=== PATIENT | female | born 1985 | race Caucasian/White ===

== ENCOUNTER 2018-04-16 00:17 | Emergency (ER) | payer OTHER ==
[~2018-04-16] VITALS: Ht 165.1 cm; Wt 59.0 kg
[~2018-04-16 00:17] MED LIST: ALPR1 PO; BENZ2 PO; BUPR150ER PO; CARI350; FAMO40 PO; HALO2 PO; HYDACE5 PO; IBUHYD; IBUP800 PO; Mirena1 EACH VG; Naprosyn500 MG PO; Norco 5-325 Ta1 EACH PO; ONDA4ODT; OXYACE10 PO; PROM25 PO; Percocet 5-3251 EACH PO; TRAZ50 PO; VENL25 PO; Verotin-Gr Cap1 EACH PO
== END 2018-04-16 02:23 | disposition home or self-care (01) ==
LOC: ER 00:17
DX: R07.89 Other chest pain (principal); Z88.0 Allergy status to penicillin; Z88.2 Allergy status to sulfonamides; Z88.8 Allergy status to other drugs, medicaments and biological substances; Z79.899 Other long term (current) drug therapy; F17.200 Nicotine dependence, unspecified, uncomplicated
CPT/HCPCS: 71046; 93005; 93010; 96374; 99283; J1885

== ENCOUNTER 2019-08-24 09:02 | Observation (INO) | payer OTHER ==
[~2019-08-24] VITALS: Ht 162.6 cm; Wt 77.1 kg
[~2019-08-24 09:02] MED LIST changes: +Flagyl500 MG PO; +ONDA4ODT MM; +Prednisone20 MG PO; +Vibramycin100 MG PO
[2019-08-24 09:39] LABS: BASOPHILS ABSOLUTE AUTO 0.06 K/mm3 (0.00-0.23); BASOPHILS PERCENT AUTO 0 % (0-2); EOSINOPHILS PERCENT AUTO 0 % (0-6); Hematocrit 34.1 % (33.0-51.0); Hemoglobin 11.6 g/dL (11.5-16.0); IMMATURE GRAN ABSOLUTE AUTO 0.15 K/mm3 (0.00-0.10); IMMATURE GRAN PERCENT AUTO 1 % (0-1); LYMPHOCYTES ABSOLUTE AUTO 0.73 K/mm3 (0.84-5.20); LYMPHOCYTES PERCENT AUTO 4 % (21-46); MONOCYTES ABSOLUTE AUTO 0.81 K/mm3 (0.16-1.47); MONOCYTES PERCENT AUTO 4 % (4-13); Mean Corpuscular HGB 31.8 pg (26.0-34.0); Mean Corpuscular Volume 93 fL (80-100); Mean Platelet Volume 9.5 fL (9.1-12.4); NEUTROPHILS ABSOLUTE AUTO 17.67 K/mm3 (1.96-9.15); NEUTROPHILS PERCENT AUTO 91 % (41-73); Platelet Count 356 K/mm3 (150-400); RDW Coefficient Variation 13.4 % (11.7-14.2); RDW Standard Deviation 46.1 fL (35.1-46.3); Red Blood Cell Count 3.65 M/mm3 (3.80-5.20); White Blood Cell Count 19.42 K/mm3 (4.00-11.30)
[2019-08-24 09:58] LABS: Alanine Aminotransfer (ALT/SGP 42 U/L (12-78); Albumin, Blood 3.7 g/dL (3.4-5.0); Albumin/Globulin Ratio 1.1 (0.8-1.8); Alk Phos 41 U/L (50-136); Anion Gap 10 mmol/L (6-16); Aspartate Aminotrans (AST/SGOT 39 U/L (12-37); Bilirubin, Total 0.4 mg/dL (0.1-1.0); Blood Urea Nitrogen 19 mg/dL (8-24); Bun/Creatinine Ratio 13.7 (12.0-20.0); CO2, Blood 21 mmol/L (21-32); Calcium, Blood 8.4 mg/dL (8.5-10.1); Chloride, Blood 113 mmol/L (98-108); Creatinine, Blood 1.39 mg/dL (0.40-1.00); Ethanol (Alcohol), Blood, Med <3 mg/dL; Globulin, Blood 3.3 g/dL (2.2-4.0); Glomerular Filtration Rate 47 (60-); Glucose, Blood 75 mg/dL (70-99); Potassium, Blood 3.6 mmol/L (3.5-5.5); Sodium, Blood 144 mmol/L (136-145)
[2019-08-24 10:31] LABS: Source, Urine Clean Catch
[2019-08-24 10:35] LABS: Bilirubin, Urine Neg (Neg); Blood, Urine 4+ (Neg); Glucose Qualitative, Urine Neg (Neg); Ketones, Urine 3+ (Neg); Leukocyte Esterase, Urine 2+ (Neg); Nitrite, Urine Neg (Neg); Protein, Urine 2+ (Neg); Specific Gravity, Urine 1.025 (1.003-1.022); Urobilinogen, Urine NORM (Normal)
[2019-08-24 10:48] LABS: U Amphetamine Screen DETECTED; U Barbituate Screen Not Detected; U Benzodiazapine Screen Not Detected; U Cocaine Screen Not Detected; U Methamphetamine Screen DETECTED
[2019-08-24 10:49] LABS: U Buprenorphine Screen Not Detected; U Cannabinoids Screen DETECTED; U Methadone Screen Not Detected; U Opiates Screen Not Detected; U Oxycodone Screen Not Detected; U Phencyclidine Screen Not Detected; U Propoxyphene Screen Not Detected
[2019-08-24 10:50] LABS: Appearance, Urine Hazy (Clear); Bacteria Few /hpf; Color, Urine Yellow (P-Yellow); Squamous Epithelial Cells Few /hpf (Few)
[2019-08-24 11:52] LABS: Candida species (DNA Probe) Negative (NEGATIVE); G. vaginalis (DNA Probe) Negative (NEGATIVE); T. vaginalis (DNA Probe) Positive (NEGATIVE)
--- NOTE | 2019-08-24 14:56 | NUR ---
ADMISSION: REPORT RECIEVED FROM ED RN ANDREA, PT TO UNIT AT 1430. PT IS ALERT, OREINTED, BUT VERY HYPERACTIVE, NOT SITTING STILL AND GETTING OUT OF BED TO LOOK OUT WINDOW AND UNDER BED. NON SKID SOCKS PLACED ON PT AND INSTUCTED TO STAY IN BED, WHICH PT IGNORED. PT REPORTS "SOMETHING IN THE CORNER OF THE ROOM", THERE IS NOTHING. PT SMELLS OF STRONGLY OF MARIJUANA. HR IS 105, OTHERWISE VSS. WILL CTM
--- NOTE | 2019-08-24 15:07 | NUR ---
CALL RECIEVED FROM ASSISTANT CREDIT MANAGER. PLAN IS TO KEEP PT NPO AT THIS TIME AND HAVE D & C TOMORROW. DR. FELIZ TO SEE PT, WILL MONITOR
[2019-08-24 17:47] LABS: BASOPHILS ABSOLUTE AUTO 0.06 K/mm3 (0.00-0.23); BASOPHILS PERCENT AUTO 0 % (0-2); EOSINOPHILS ABSOLUTE AUTO 0.03 K/mm3 (0.00-0.68); EOSINOPHILS PERCENT AUTO 0 % (0-6); Hematocrit 30.6 % (33.0-51.0); Hemoglobin 10.2 g/dL (11.5-16.0); IMMATURE GRAN ABSOLUTE AUTO 0.06 K/mm3 (0.00-0.10); IMMATURE GRAN PERCENT AUTO 0 % (0-1); LYMPHOCYTES ABSOLUTE AUTO 2.36 K/mm3 (0.84-5.20); LYMPHOCYTES PERCENT AUTO 17 % (21-46); MONOCYTES ABSOLUTE AUTO 1.41 K/mm3 (0.16-1.47); MONOCYTES PERCENT AUTO 10 % (4-13); Mean Corpuscular HGB 31.2 pg (26.0-34.0); Mean Corpuscular HGB Conc 33.3 g/dL (31.5-36.5); Mean Corpuscular Volume 94 fL (80-100); Mean Platelet Volume 9.7 fL (9.1-12.4); NEUTROPHILS ABSOLUTE AUTO 9.99 K/mm3 (1.96-9.15); NEUTROPHILS PERCENT AUTO 72 % (41-73); Platelet Count 303 K/mm3 (150-400); RDW Coefficient Variation 13.8 % (11.7-14.2); RDW Standard Deviation 46.7 fL (35.1-46.3); Red Blood Cell Count 3.27 M/mm3 (3.80-5.20); White Blood Cell Count 13.91 K/mm3 (4.00-11.30)
--- NOTE | 2019-08-24 17:57 | NUR ---
SUMMARY: NO ACUTE CHANGE SINCE ADMISSION. VSS, CURRENTLY SLEEPING. CONTINUES TO HAVE HYPERACTIVE ACTIVITY MOVING ABOUT ROOM, LOOKING UNDER BED, WONDERING OUT IN HALLWAY WHILE AWAKE. PT HAVING AUDITORY AND VISUAL HALLUCINATIONS. DR. RODRIGUEZ IN TO SEE PT, SEE NEW ORDERS. FLUIDS STARTED AND PT GIVEN ANTIBIOTIC. PLAN IS NPO AT 0000 AND AT D&C TOMORROW. WILL CTM AND REPORT TO FERNANDA RN
[2019-08-24 18:08] LABS: Anion Gap 5 mmol/L (6-16); Blood Urea Nitrogen 14 mg/dL (8-24); Bun/Creatinine Ratio 14.5 (12.0-20.0); CO2, Blood 21 mmol/L (21-32); Calcium, Blood 7.5 mg/dL (8.5-10.1); Chloride, Blood 112 mmol/L (98-108); Creatinine, Blood 0.97 mg/dL (0.40-1.00); Glomerular Filtration Rate >60 (60-); Glucose, Blood 132 mg/dL (70-99); Potassium, Blood 3.3 mmol/L (3.5-5.5); Sodium, Blood 138 mmol/L (136-145)
--- NOTE | 2019-08-25 05:22 | NUR ---
WOKE PT UP FOR VS, PT'S VSS, AMBULATED TO BR, UNSTEADY GAIT. PT BEGAN SHOWING SIGNS OF HALLUCANATING ALONG WITH PARANOIA. PT STATED FEELING UNSAFE AND NEEDED A KNIFE OR WEAPON TO DEFEND HERSELF. PUPILS DIALTED. DEMANDING ME TO REMOVE GARBAGE FROM ROOM AND BACKPACK CAUSE SOMTHING WAS COMING OUT OF IT. PT THEN STOOD ON BED. PT WAS GIVEN 1MG ATIVAN THEN REPEATED DOSE WHICH SEEMED INEFECTIVE. PT ADMITTED TO TAKING ACID AND METH PRIOR TO COMING TO HOSPITAL. CALLED DR. RODRIGUEZ AND INFORMED OF PT'S BEHAVIOR. PT WAS THEN MEDICATED WITH ANOTHER 2MG IV ATIVAN AND 50MG IV BENADRYL. THIS HAS HELPED SOME. PT IS NOT FRANTIC AND IS A BIT TEARFUL. TALKING ABOUT HER CHILDREN AND HOW SHE MAKES POOR CHOICES. SPECIAL [employer] UNIT OFFICER IS NOW SITTING WITH PT TO HELP COMFORT HER AND MAKE HER FEEL SAFE, THIS IS HELPING.
[2019-08-25 06:20] LABS: Anion Gap 6 mmol/L (6-16); BASOPHILS ABSOLUTE AUTO 0.04 K/mm3 (0.00-0.23); BASOPHILS PERCENT AUTO 1 % (0-2); Blood Urea Nitrogen 13 mg/dL (8-24); Bun/Creatinine Ratio 14.3 (12.0-20.0); CO2, Blood 23 mmol/L (21-32); Calcium, Blood 7.6 mg/dL (8.5-10.1); Chloride, Blood 113 mmol/L (98-108); Creatinine, Blood 0.91 mg/dL (0.40-1.00); EOSINOPHILS ABSOLUTE AUTO 0.14 K/mm3 (0.00-0.68); EOSINOPHILS PERCENT AUTO 2 % (0-6); Glomerular Filtration Rate >60 (60-); Glucose, Blood 94 mg/dL (70-99); Hematocrit 32.7 % (33.0-51.0); Hemoglobin 10.5 g/dL (11.5-16.0); IMMATURE GRAN ABSOLUTE AUTO 0.03 K/mm3 (0.00-0.10); IMMATURE GRAN PERCENT AUTO 0 % (0-1); LYMPHOCYTES ABSOLUTE AUTO 2.16 K/mm3 (0.84-5.20); LYMPHOCYTES PERCENT AUTO 27 % (21-46); MONOCYTES PERCENT AUTO 11 % (4-13); Mean Corpuscular HGB 30.3 pg (26.0-34.0); Mean Corpuscular HGB Conc 32.1 g/dL (31.5-36.5); Mean Corpuscular Volume 95 fL (80-100); Mean Platelet Volume 10.1 fL (9.1-12.4); NEUTROPHILS PERCENT AUTO 59 % (41-73); Platelet Count 333 K/mm3 (150-400); Potassium, Blood 3.4 mmol/L (3.5-5.5); RDW Standard Deviation 48.4 fL (35.1-46.3); Red Blood Cell Count 3.46 M/mm3 (3.80-5.20); Sodium, Blood 142 mmol/L (136-145); White Blood Cell Count 8.07 K/mm3 (4.00-11.30)
--- NOTE | 2019-08-25 10:25 | NUR ---
PT TO OR AT 1020
--- NOTE | 2019-08-25 10:38 | NUR ---
Ambulatory in Day SurgeryLungs clear T/O to Auscultation. Patient confirms NPO status and agrees with scheduled surgery. History, Chart, Medications and Allergies reviewed before start of procedure.
--- NOTE | 2019-08-25 11:18 | NUR ---
08/25/19 1118 Suze Sanchez PT RECEIVED ANTIBIOTICS IN PREOP
--- NOTE | 2019-08-25 11:53 | NUR ---
REPORT RECIEVED FROM TEXT TRANSCRIBER TAMI
--- NOTE | 2019-08-25 12:23 | NUR ---
POST OP: PT BACK FROM OR AT ABOUT 1200. UPON ASSESSMENT, PT IS DROWSY, AWAKENS TO VOICE AND ABLE TO ANSWER QUESTIONS. VSS. SCANT BLEEDING ON BEAR PAD AND, CHANGED AT THIS TIME. PT DIFTS BACK TO SLEEP EASILY, BED ALARM ON FOR SAFETY. WILL CTM.
--- NOTE | 2019-08-25 17:54 | NUR ---
SUMMARY: PT DOING WELL POST OP. VSS. ALERT, AND ABLE TO REST IN BED INSTEAD OF MOVING ABOUT THE ROOM. CONTINUES TO HAVE TREMORS, NO VISUAL OR AUDITORY HALLUCINATIONS OBSERVED. PT REPORTS SOME "SORENESS" AT ABD, REPORTS PAIN MANAGED WITH TORADOL. SMALL AMOUNT VAGINAL BLEED, BEAR PAD CHANGED X1. PT ABLE TO EAT, NO NAUSEA AND IS VOIDING. SPOKE WITH DR. LUIS FERNANDO RODRIGUEZ AND HOPEFUL TO DISCHARGE PT IF PT CAN FIND A PLACE TO STAY TONIGHT. WILL CTM AND REPORT TO NOC RN.
[2019-08-25] MEDS ORDERED: ACET325 PO (19:33)
[2019-08-25] MEDS ORDERED: IBUP800 PO (19:34)
--- NOTE | 2019-08-25 19:45 | NUR ---
DISCHARGE PACKET PRINTED, SHAHEED BALDERAS TO DO PT EDUCATION AND DISCHARGE. [facility] TO BIOMEDICAL EQUIPMENT TECHNICIAN PT TO TAKE TO [facility]
--- NOTE | 2019-08-25 20:38 | NUR ---
DISCHARGE SUMMARY: PT DISCHARGED TO HOME, VSS, NO DISTRESS NOTED AT TIME OF D/C. D/C INSTRUCTIONS AND F/U CARE REVIEWED W/PT. ALL QUESTIONS ANSWERED. D/C INSTRUCTIONS AND SCRIPT SENT W/PT. PT REP PAIN TALISHA AT TIME OF D/C. PT PLAN TO STAY AT FRIEND'S HOUSE IN DAYS [place], OR. [facility] CALLED ([facility] PER [facility]UR[facility]) TO TRANSPORT PT. PT AMB VIA CART BY SURVEY TECHNICIAN. SURVEY TECHNICIAN STAYED W/PT UNTIL [facility] ARRIVED.
== END 2019-08-25 19:50 | disposition home or self-care (01) ==
LOC: ER 09:02 → ERHOLD 09:03 → SURS 09:03 → ER 13:22 → SURS 13:22 → ERHOLD 13:22 → SURS 14:32
PROVIDERS: Emergency Medicine; ADMIT Obstetrics & Gynecology
PROC: 10D17ZZ Extraction of Products of Conception, Retained, Via Natural or Artificial Opening (ICD-10-PCS; principal; 2019-08-25 10:45)
DX: O03.4 Incomplete spontaneous abortion without complication (principal); F15.10 Other stimulant abuse, uncomplicated; F31.9 Bipolar disorder, unspecified; F41.9 Anxiety disorder, unspecified; Z23 Encounter for immunization; Z88.5 Allergy status to narcotic agent; Z88.8 Allergy status to other drugs, medicaments and biological substances; Z88.0 Allergy status to penicillin; Z88.2 Allergy status to sulfonamides; Z79.899 Other long term (current) drug therapy
CPT/HCPCS: 36415; 76830; 76856; 80048; 80053; 81001; 83605; 84702; 84703; 85025; 86850; 86900; 86901; 87040; 87086; 87480; 87510; 87660; 88305; 90686; 93005; 93010; 96361; 96365; 96375; 96376; 99285-25; G0378; G0480; J0694; J0696; J1200; J1885; J2060; J2250; J2704; J3010; J7030; J7120

== ENCOUNTER 2019-09-13 10:16 | Emergency (ER) | payer OTHER ==
[~2019-09-13] VITALS: Ht 167.6 cm; Wt 77.1 kg
[~2019-09-13 10:16] MED LIST changes: +ACET325 PO
== END 2019-09-13 22:54 | disposition home or self-care (01) ==
LOC: ER 10:16
DX: F41.9 Anxiety disorder, unspecified (principal); Z88.8 Allergy status to other drugs, medicaments and biological substances; Z88.0 Allergy status to penicillin; Z88.2 Allergy status to sulfonamides; Z88.5 Allergy status to narcotic agent
CPT/HCPCS: 99284

== ENCOUNTER → 2019-11-26 | Outpatient (CLI) | payer OTHER | END | disposition home or self-care (01) | LOC: LAB EV 08:52 → LAB SHORT 08:52 | DX: R50.9 Fever, unspecified (principal) | CPT/HCPCS: 87081 ==

== ENCOUNTER 2020-03-06 17:36 | Emergency (ER) | payer OTHER ==
[~2020-03-06] VITALS: Ht 162.6 cm; Wt 81.7 kg
[2020-03-06] MEDS ORDERED: FLUT1DIS5 INH (18:27)
[2020-03-06] MEDS ORDERED: ALBU90OI INH ×2 (18:27→20:05)
[2020-03-06 18:30] LABS: BASOPHILS ABSOLUTE AUTO 0.06 K/mm3 (0.00-0.23); BASOPHILS PERCENT AUTO 1 % (0-2); EOSINOPHILS ABSOLUTE AUTO 0.18 K/mm3 (0.00-0.68); EOSINOPHILS PERCENT AUTO 2 % (0-6); Hematocrit 38.8 % (33.0-51.0); Hemoglobin 13.2 g/dL (11.5-16.0); IMMATURE GRAN ABSOLUTE AUTO 0.08 K/mm3 (0.00-0.10); IMMATURE GRAN PERCENT AUTO 1 % (0-1); LYMPHOCYTES ABSOLUTE AUTO 4.24 K/mm3 (0.84-5.20); LYMPHOCYTES PERCENT AUTO 41 % (21-46); MONOCYTES ABSOLUTE AUTO 1.22 K/mm3 (0.16-1.47); MONOCYTES PERCENT AUTO 12 % (4-13); Mean Corpuscular HGB 30.8 pg (26.0-34.0); Mean Corpuscular Volume 91 fL (80-100); Mean Platelet Volume 9.8 fL (9.1-12.4); NEUTROPHILS ABSOLUTE AUTO 4.48 K/mm3 (1.96-9.15); NEUTROPHILS PERCENT AUTO 44 % (41-73); Platelet Count 382 K/mm3 (150-400); RDW Coefficient Variation 13.8 % (11.7-14.2); Red Blood Cell Count 4.28 M/mm3 (3.80-5.20); White Blood Cell Count 10.26 K/mm3 (4.00-11.30)
[2020-03-06 19:05] LABS: Alanine Aminotransfer (ALT/SGP 47 U/L (12-78); Albumin/Globulin Ratio 1.2 (0.8-1.8); Alk Phos 38 U/L (50-136); Anion Gap 3 mmol/L (6-16); Aspartate Aminotrans (AST/SGOT 46 U/L (12-37); Bilirubin, Total 0.3 mg/dL (0.1-1.0); Blood Urea Nitrogen 18 mg/dL (8-24); Bun/Creatinine Ratio 16.4 (12.0-20.0); CO2, Blood 28 mmol/L (21-32); Calcium, Blood 8.3 mg/dL (8.5-10.1); Chloride, Blood 107 mmol/L (98-108); Globulin, Blood 3.4 g/dL (2.2-4.0); Glomerular Filtration Rate >60 (60-); Glucose, Blood 80 mg/dL (70-99); Potassium, Blood 3.8 mmol/L (3.5-5.5); Sodium, Blood 138 mmol/L (136-145); Total Protein, Blood 7.4 g/dL (6.4-8.2)
[2020-03-06 19:22] LABS: Beta HCG, Quantitative, Serum <1 mIU/mL (0-3); Troponin I <0.015 ng/mL (0.000-0.040)
== END 2020-03-06 20:31 | disposition home or self-care (01) ==
LOC: ER 17:36
PROVIDERS: Emergency Medicine
DX: J45.909 Unspecified asthma, uncomplicated (principal); F41.9 Anxiety disorder, unspecified; F31.9 Bipolar disorder, unspecified; Z88.8 Allergy status to other drugs, medicaments and biological substances; Z88.0 Allergy status to penicillin; Z88.2 Allergy status to sulfonamides; Z88.5 Allergy status to narcotic agent; Z79.899 Other long term (current) drug therapy; Z79.51 Long term (current) use of inhaled steroids
CPT/HCPCS: 36415; 71046; 80053; 84484; 84702; 85025; 93005; 93010; 94640; 99285-25

== ENCOUNTER → 2020-08-05 | Outpatient (CLI) | payer OTHER ==
[~2020-08-05] MED LIST changes: +ALBU90OI INH; +FLUT1DIS5 INH
== END ==
LOC: LAB SHORT 15:06 → LAB EV 15:06
DX: J06.9 Acute upper respiratory infection, unspecified (principal); Z20.828 Contact with and (suspected) exposure to other viral communicable diseases
CPT/HCPCS: U0003

== ENCOUNTER → 2020-08-19 | Outpatient (CLI) | payer OTHER | END | disposition home or self-care (01) | LOC: LAB EV 11:50 → LAB SHORT 11:50 | DX: B34.9 Viral infection, unspecified (principal); Z20.828 Contact with and (suspected) exposure to other viral communicable diseases | CPT/HCPCS: 87081; U0003 ==

== ENCOUNTER → 2021-06-15 | Outpatient (CLI) | payer OTHER ==
[2021-06-15 19:34] LABS: White Blood Cells, Urine 0-2 /hpf (0-5)
[2021-06-15 19:35] LABS: Bacteria Few /hpf; Red Blood Cells, Urine 0-2 /hpf (0-2); Squamous Epithelial Cells Rare /hpf (Few)
[2021-06-15 20:06] LABS: U Amphetamine Screen Not Detected; U Barbituate Screen Not Detected; U Cannabinoids Screen DETECTED; U Methamphetamine Screen Not Detected
[2021-06-15 20:07] LABS: U Benzodiazapine Screen Not Detected; U Buprenorphine Screen Not Detected; U Cocaine Screen Not Detected; U Methadone Screen Not Detected; U Opiates Screen Not Detected; U Oxycodone Screen Not Detected; U Phencyclidine Screen Not Detected; U Propoxyphene Screen Not Detected
[2021-06-22 06:11] LABS: CARBOXY-THC 74 (.)
== END | disposition home or self-care (01) ==
LOC: LAB 15:00 → LAB SHORT 15:00
PROVIDERS: Obstetrics & Gynecology
DX: Z34.81 Encounter for supervision of other normal pregnancy, first trimester (principal)
CPT/HCPCS: 81015; 87086; G0480

== ENCOUNTER → 2021-10-09 | Outpatient (CLI) | payer OTHER ==
[2021-10-10 10:25] LABS: Candida species (DNA Probe) Positive (NEGATIVE); G. vaginalis (DNA Probe) Positive (NEGATIVE); T. vaginalis (DNA Probe) Negative (NEGATIVE)
== END ==
LOC: LAB SHORT 16:05 → LAB 16:05
PROVIDERS: Obstetrics & Gynecology
DX: O09.92 Supervision of high risk pregnancy, unspecified, second trimester (principal); Z3A.00 Weeks of gestation of pregnancy not specified
CPT/HCPCS: 87480; 87510; 87660

== ENCOUNTER → 2021-12-25 | Outpatient (CLI) | payer OTHER | END | disposition home or self-care (01) | LOC: LAB 14:57 → LAB SHORT 14:57 | DX: O09.93 Supervision of high risk pregnancy, unspecified, third trimester (principal) | CPT/HCPCS: 87081; 87150 ==

== ENCOUNTER 2022-01-18 04:57 | Inpatient (IN) | payer OTHER ==
[~2022-01-18] VITALS: Ht 162.6 cm; Wt 97.7 kg
[2022-01-18] MEDS ORDERED: ONDA4ODT MM (05:58)
[2022-01-18] MEDS ORDERED: PRENATAL TABLE1 EAC2 (05:59)
[2022-01-18 06:05] LABS: BASOPHILS ABSOLUTE AUTO 0.03 K/mm3 (0.00-0.23); BASOPHILS PERCENT AUTO 0 % (0-2); EOSINOPHILS ABSOLUTE AUTO 0.07 K/mm3 (0.00-0.68); EOSINOPHILS PERCENT AUTO 1 % (0-6); Hematocrit 33.7 % (33.0-51.0); Hemoglobin 11.1 g/dL (11.5-16.0); IMMATURE GRAN ABSOLUTE AUTO 0.07 K/mm3 (0.00-0.10); IMMATURE GRAN PERCENT AUTO 1 % (0-1); LYMPHOCYTES ABSOLUTE AUTO 2.09 K/mm3 (0.84-5.20); LYMPHOCYTES PERCENT AUTO 25 % (21-46); MONOCYTES ABSOLUTE AUTO 0.85 K/mm3 (0.16-1.47); MONOCYTES PERCENT AUTO 10 % (4-13); Mean Corpuscular HGB 30.3 pg (26.0-34.0); Mean Corpuscular HGB Conc 32.9 g/dL (31.5-36.5); Mean Corpuscular Volume 92 fL (80-100); Mean Platelet Volume 10.3 fL (9.1-12.4); NEUTROPHILS ABSOLUTE AUTO 5.32 K/mm3 (1.96-9.15); NEUTROPHILS PERCENT AUTO 63 % (41-73); Platelet Count 233 K/mm3 (150-400); RDW Coefficient Variation 13.5 % (11.7-14.2); RDW Standard Deviation 45.6 fL (35.1-46.3); Red Blood Cell Count 3.66 M/mm3 (3.80-5.20); White Blood Cell Count 8.43 K/mm3 (4.00-11.30)
[2022-01-18 06:35] LABS: Influenza A, PCR NEGATIVE (NEGATIVE); Influenza B, PCR NEGATIVE (NEGATIVE); Resp Syncytial Virus, PCR NEGATIVE (NEGATIVE); SARS-Cov-2 (COVID-19) PCR, MMC NEGATIVE (NEGATIVE)
--- NOTE | 2022-01-18 10:21 | NUR ---
Spiritual Care Attempted Responded to a spiritual care request at 09:40. Nurse checked with Pt. Pt. declines spiritual care at this time.
== END 2022-01-19 18:58 | disposition home or self-care (01) | DRG 807 ==
LOC: OBS 04:57 → BC 04:58 → OBS 05:04 → BC 05:06
PROVIDERS: ADMIT Obstetrics & Gynecology
PROC: 10E0XZZ Delivery of Products of Conception, External Approach (ICD-10-PCS; principal; 2022-01-18)
PROC: 10907ZC Drainage of Amniotic Fluid, Therapeutic from Products of Conception, Via Natural or Artificial Opening (ICD-10-PCS; 2022-01-18)
PROC: 00HU33Z Insertion of Infusion Device into Spinal Canal, Percutaneous Approach (ICD-10-PCS; 2022-01-18)
PROC: 3E0R3BZ Introduction of Anesthetic Agent into Spinal Canal, Percutaneous Approach (ICD-10-PCS; 2022-01-18)
PROC: 10H07YZ Insertion of Other Device into Products of Conception, Via Natural or Artificial Opening (ICD-10-PCS; 2022-01-18)
DX: O24.420 Gestational diabetes mellitus in childbirth, diet controlled (principal); Z37.0 Single live birth; O48.0 Post-term pregnancy; Z67.10 Type A blood, Rh positive; Z3A.40 40 weeks gestation of pregnancy; Z20.822 Contact with and (suspected) exposure to COVID-19; O69.81X0 Labor and delivery complicated by cord around neck, without compression, not applicable or unspecified; O99.334 Smoking (tobacco) complicating childbirth; Z88.0 Allergy status to penicillin; Z88.2 Allergy status to sulfonamides; Z88.5 Allergy status to narcotic agent; Z88.8 Allergy status to other drugs, medicaments and biological substances
CPT/HCPCS: 0241U; 36415; 36416; 51702; 82947; 85025; 86850; 86900; 86901; A9270; J1885; J2001; J2210; J2405; J3010; J7120

== ENCOUNTER 2022-03-01 13:06 | Day surgery (SDC) | payer OTHER ==
[~2022-03-01] VITALS: Ht 162.6 cm; Wt 95.3 kg
[~2022-03-01 13:06] MED LIST changes: +PRENATAL TABLE1 EAC2
--- NOTE | 2022-03-01 14:14 | NUR ---
03/01/22 1414 Mary Beth Beth BUPIVACAINE 0.5% 30 MLS MIXED W/ 0.15 EPI PER ORDER TO MAKE BUPIVACAINE 0.5% 1:200,000 FOR INJECTION AT OPSITE BY DR RODRIGUEZ. 10 MLS INJECTED.
== END 2022-03-01 15:22 | disposition home or self-care (01) ==
LOC: ORSCSDS 13:06
PROVIDERS: Obstetrics & Gynecology
PROC: 0UT74ZZ Resection of Bilateral Fallopian Tubes, Percutaneous Endoscopic Approach (ICD-10-PCS; principal; 2022-03-01 14:00)
DX: Z30.2 Encounter for sterilization (principal); J45.909 Unspecified asthma, uncomplicated; E66.9 Obesity, unspecified; Z68.36 Body mass index [BMI] 36.0-36.9, adult; K21.9 Gastro-esophageal reflux disease without esophagitis; Z86.16 Personal history of COVID-19; Z79.899 Other long term (current) drug therapy
CPT/HCPCS: 88302; A9270; J0171; J1100; J1885; J2250; J2405; J2704; J3010; J7120

== ENCOUNTER → 2023-09-12 | Outpatient (CLI) | payer OTHER | END | disposition home or self-care (01) | LOC: LAB 17:00 → LAB SHORT 17:00 | DX: N39.0 Urinary tract infection, site not specified (principal) | CPT/HCPCS: 87077; 87086; 87186 ==